=== PATIENT | female | born 1930 | race Caucasian/White ===

== ENCOUNTER 2018-02-25 14:52 | Inpatient (IN) | payer MEDICARE, MEDICAID, OTHER ==
[~2018-02-25] VITALS: Ht 157.5 cm; Wt 61.2 kg
[~2018-02-25 14:52] MED LIST: AMLO5TAB16 PO; ASPI-1265 PO; ATOR10TA PO; CARV25TA PO; FURO-149 PO; GLIP5TAB13 PO; LISI-642 PO; LORA10TA7 PO; POTA-82 PO; TRAZ-218 PO
[2018-02-25] MEDS ORDERED: furosemide 10 MG/1 ML 10ml inj IV ONE ×2 (15:40→20:00)
[2018-02-25 15:50] LABS: BASOPHILS % (AUTO) 0.8 % (0-1); EOSINOPHILS # (AUTO) 0.3 X10'3 (0-0.9); EOSINOPHILS % (AUTO) 5.6 % (0-6); HEMATOCRIT 40.6 % (35.0-45.0); HEMOGLOBIN 13.5 g/dl (12.0-16.0); LYMPHOCYTES # (AUTO) 1.3 X10'3 (1.1-4.8); LYMPHOCYTES % (AUTO) 21.8 % (21-51); MEAN CORPUSCULAR HEMOGLOBIN 28.9 PG (27.0-31.0); MEAN CORPUSCULAR HGB CONC 33.3 % (33.0-36.5); MEAN CORPUSCULAR VOLUME 86.9 FL (78-98); MEAN PLATELET VOLUME 9.5 FL (7.4-10.4); MONOCYTES # (AUTO) 0.5 X10'3 (0-0.9); MONOCYTES % (AUTO) 8.4 % (2-12); NEUTROPHILS # (AUTO) 3.7 X10'3 (1.8-7.7); NEUTROPHILS % (AUTO) 63.4 % (42-75); PLATELET COUNT 144 X10'3 (140-440); RED BLOOD COUNT 4.67 X10'6 (4.20-5.60); RED CELL DISTRIBUTION WIDTH 18.6 % (11.5-14.5); WHITE BLOOD COUNT 5.8 X10'3 (4.5-11.0)
[2018-02-25 16:02] LABS: ANISOCYTOSIS 2+; BURR CELLS FEW; PLATELET ESTIMATE NORMAL; SCHISTOCYTES FEW
[2018-02-25 16:05] LABS: GLUCOSE 330 MG/DL (70-104); SODIUM 138 MMOL/L (135-145)
[2018-02-25 16:06] LABS: ALANINE AMINOTRANSFERASE 11 U/L (12-78); ALBUMIN/GLOBULIN RATIO 0.8 (1.1-1.5); ALKALINE PHOSPHATASE 110 IU/L (46-116); ANION GAP 13 (8-16); ASPARTATE AMINO TRANSFERASE 14 U/L (10-37); BILIRUBIN,TOTAL 0.6 MG/DL (0.1-1.0); BLOOD UREA NITROGEN 46 MG/DL (7-18); BUN/CREATININE RATIO 18.8 (6.6-38.0); CALCIUM 9.1 MG/DL (8.5-10.1); CHLORIDE 107 MMOL/L (99-107); CREATININE 2.45 MG/DL (0.40-0.90); POTASSIUM 4.4 MMOL/L (3.5-5.1); TOTAL CARBON DIOXIDE 18.5 MMOL/L (24-32); TOTAL PROTEIN 6.6 G/DL (6.4-8.2); eGFR 19 ML/MIN
[2018-02-25 16:13] LABS: MAGNESIUM 2.1 MG/DL (1.5-2.4); TROPONIN I < 0.04 NG/ML (0.0-0.05)
[2018-02-25] MEDS ORDERED: ondansetron/PF 4mg/2ml inj IV PRN (17:10)
[2018-02-25] MEDS ORDERED: insulin Lispro (HumaLOG) vial - multi-dose SQ SCH (17:10)
[2018-02-25] MEDS ORDERED: magnesium 1gm/100ml D5W IVPB 100 ML IV PRN (17:10)
[2018-02-25] MEDS ORDERED: magnesium 4gm in 100ml NS 100 ML IV PRN (17:10)
[2018-02-25] MEDS ORDERED: potassium Cl 40MEQ/NS 500ml 500 ML IV PRN ×2 (17:10)
[2018-02-25] MEDS ORDERED: MESSAGE TO PHARMACY PO ONE (17:10)
[2018-02-25] MEDS ORDERED: glucagon, human recombinant 1mg kit SUBCUT PRN (17:10)
[2018-02-25] MEDS ORDERED: dextrose 50%-water 50ml dispensing syringe IV PRN ×2 (17:10)
[2018-02-25] MEDS ORDERED: potassium Cl 20 mEq SR tablet PO PRN ×2 (17:10)
[2018-02-25] MEDS ORDERED: dextrose ORAL solution 15 GM/59 ML bottle PO PRN ×2 (17:10)
[2018-02-25] MEDS ORDERED: magnesium Cl slow-release 64mg tablet PO PRN (17:10)
[2018-02-25 17:19] LABS: CLARITY,URINE CLOUDY (Clear); COLOR,URINE YELLOW (Yellow); GLUCOSE, URINE >=1000 mg/dl (Neg); KETONES,URINE NEGATIVE (Neg); LEUKOCYTE ESTERASE ,URINE NEGATIVE (Neg); NITRITES, URINE POSITIVE (Neg); OCCULT BLOOD,URINE MODERATE (Neg); PROTEIN,URINE >=300 mg/dl (Neg); UA COLLECTION TYPE STRAIGHT CATH; UROBILINOGEN,URINE 0.2 E.U/dL (0.2-1.0)
[2018-02-25 17:25] LABS: SQUAMOUS EPITHELIAL CELL,UR FEW /LPF (FEW)
[2018-02-25 17:26] LABS: BACTERIA,URINE 2+ /HPF (Neg); WBC,URINE 0-4 /HPF (0-4)
[2018-02-25 17:54] LABS: HEMOGLOBIN A1C 9.1 % (4.5-6.2)
[2018-02-25] MEDS ORDERED: enoxaparin 30mg/0.3ml syringe SQ SCH (20:00)
[2018-02-25] MEDS ORDERED: traZODone 50mg tablet PO PRN (20:25)
[2018-02-25] MEDS: insulin glargine (Lantus) pen - multi-dose SQ SCH (21:00)
[2018-02-25 21:25] VITALS: BP 182/97
[2018-02-25 22:00] VITALS: BP 157/96
[2018-02-26] VITALS: BP 157/85
[2018-02-26 07:21] VITALS: BP 188/98
[2018-02-26] MEDS: amLODIPine 5mg tablet PO SCH (07:55)
[2018-02-26] MEDS: lisinopril 5mg tablet PO SCH (07:55)
[2018-02-26] MEDS: carVEDilol 12.5mg tablet PO SCH ×2 (07:55→20:00)
[2018-02-26] MEDS: enoxaparin 30mg/0.3ml syringe SQ SCH (07:59)
[2018-02-26] MEDS: potassium chloride 10mEq ER tablet PO SCH (07:59)
[2018-02-26] MEDS: K and/or MAG REPLACEMENT MC SCH (07:59)
[2018-02-26] MEDS: atorvastatin 10mg tablet PO SCH (07:59)
[2018-02-26] MEDS: aspirin 81mg tab.chew PO SCH (07:59)
[2018-02-26] MEDS ORDERED: POTASSIUM CHLORIDE PO SCH (08:00)
[2018-02-26] MEDS ORDERED: diltiazem 5mg/ml 5ml inj. IV ONE ×2 (10:35)
[2018-02-26 11:30] VITALS: BP 109/64
[2018-02-26 13:15] LABS: BASOPHILS % (AUTO) 0.9 % (0-1); EOSINOPHILS # (AUTO) 0.3 X10'3 (0-0.9); EOSINOPHILS % (AUTO) 5.8 % (0-6); HEMATOCRIT 37.3 % (35.0-45.0); HEMOGLOBIN 12.6 g/dl (12.0-16.0); LYMPHOCYTES # (AUTO) 0.9 X10'3 (1.1-4.8); LYMPHOCYTES % (AUTO) 16.3 % (21-51); MEAN CORPUSCULAR HEMOGLOBIN 29.1 PG (27.0-31.0); MEAN CORPUSCULAR HGB CONC 33.9 % (33.0-36.5); MEAN PLATELET VOLUME 10.6 FL (7.4-10.4); MONOCYTES # (AUTO) 0.4 X10'3 (0-0.9); MONOCYTES % (AUTO) 6.8 % (2-12); NEUTROPHILS # (AUTO) 3.7 X10'3 (1.8-7.7); NEUTROPHILS % (AUTO) 70.2 % (42-75); PLATELET COUNT 132 X10'3 (140-440); RED BLOOD COUNT 4.34 X10'6 (4.20-5.60); RED CELL DISTRIBUTION WIDTH 18.2 % (11.5-14.5); WHITE BLOOD COUNT 5.3 X10'3 (4.5-11.0)
[2018-02-26 13:24] LABS: ALBUMIN 2.6 G/DL (3.4-5.0); ANION GAP 12 (8-16); BLOOD UREA NITROGEN 50 MG/DL (7-18); BUN/CREATININE RATIO 19.7 (6.6-38.0); CALCIUM 8.1 MG/DL (8.5-10.1); CHLORIDE 108 MMOL/L (99-107); CREATININE 2.54 MG/DL (0.40-0.90); GLUCOSE 236 MG/DL (70-104); MAGNESIUM 1.8 MG/DL (1.5-2.4); POTASSIUM 4.2 MMOL/L (3.5-5.1); SODIUM 139 MMOL/L (135-145); TOTAL CARBON DIOXIDE 19.2 MMOL/L (24-32); eGFR 18 ML/MIN
[2018-02-26 13:30] LABS: ANISOCYTOSIS 2+; PLATELET ESTIMATE DECREASED
[2018-02-26 13:31] LABS: BURR CELLS FEW; ELLIPTOCYTES 1+
[2018-02-26 19:00] VITALS: BP 167/69
[2018-02-26] MEDS: insulin glargine (Lantus) pen - multi-dose SQ SCH (21:00)
[2018-02-27] VITALS: BP 178/80
[2018-02-27 07:02] VITALS: BP 153/81
[2018-02-27] MEDS: K and/or MAG REPLACEMENT MC SCH (08:00)
[2018-02-27] MEDS: potassium chloride 10mEq ER tablet PO SCH (08:00)
[2018-02-27] MEDS: enoxaparin 30mg/0.3ml syringe SQ SCH (08:00)
[2018-02-27] MEDS: atorvastatin 10mg tablet PO SCH (08:00)
[2018-02-27] MEDS: carVEDilol 12.5mg tablet PO SCH ×2 (08:06→20:00)
[2018-02-27] MEDS: lisinopril 5mg tablet PO SCH (08:07)
[2018-02-27] MEDS: aspirin 81mg tab.chew PO SCH (08:07)
[2018-02-27] MEDS: amLODIPine 5mg tablet PO SCH (08:07)
[2018-02-27 11:00] VITALS: BP 143/66
[2018-02-27 11:47] LABS: BASOPHILS % (AUTO) 0.6 % (0-1); EOSINOPHILS # (AUTO) 0.2 X10'3 (0-0.9); EOSINOPHILS % (AUTO) 4.3 % (0-6); HEMATOCRIT 37.7 % (35.0-45.0); HEMOGLOBIN 12.5 g/dl (12.0-16.0); LYMPHOCYTES # (AUTO) 0.8 X10'3 (1.1-4.8); LYMPHOCYTES % (AUTO) 16.4 % (21-51); MEAN CORPUSCULAR HEMOGLOBIN 28.7 PG (27.0-31.0); MEAN CORPUSCULAR HGB CONC 33.2 % (33.0-36.5); MEAN CORPUSCULAR VOLUME 86.4 FL (78-98); MEAN PLATELET VOLUME 10.3 FL (7.4-10.4); MONOCYTES # (AUTO) 0.4 X10'3 (0-0.9); NEUTROPHILS # (AUTO) 3.6 X10'3 (1.8-7.7); NEUTROPHILS % (AUTO) 70.7 % (42-75); PLATELET COUNT 121 X10'3 (140-440); RED BLOOD COUNT 4.36 X10'6 (4.20-5.60); RED CELL DISTRIBUTION WIDTH 18.1 % (11.5-14.5); WHITE BLOOD COUNT 5.2 X10'3 (4.5-11.0)
[2018-02-27 11:57] LABS: ANION GAP 13 (8-16); BLOOD UREA NITROGEN 56 MG/DL (7-18); BUN/CREATININE RATIO 20.4 (6.6-38.0); CHLORIDE 106 MMOL/L (99-107); CREATININE 2.74 MG/DL (0.40-0.90); GLUCOSE 285 MG/DL (70-104); POTASSIUM 4.3 MMOL/L (3.5-5.1); SODIUM 138 MMOL/L (135-145); TOTAL CARBON DIOXIDE 19.4 MMOL/L (24-32)
[2018-02-27 11:58] LABS: ALBUMIN 2.5 G/DL (3.4-5.0); CALCIUM 8.2 MG/DL (8.5-10.1); MAGNESIUM 1.9 MG/DL (1.5-2.4); eGFR 16 ML/MIN
[2018-02-27] MEDS ORDERED: magnesium hydroxide 30ml (MOM) UD suspension PO PRN (15:50)
[2018-02-27] MEDS: azithromycin 250mg tablet PO SCH (17:00)
[2018-02-27 18:00] VITALS: BP 135/63
[2018-02-27] MEDS: insulin glargine (Lantus) pen - multi-dose SQ SCH (21:00)
[2018-02-28] VITALS: BP 167/70
[2018-02-28 07:00] VITALS: BP 176/75
[2018-02-28] MEDS: atorvastatin 10mg tablet PO SCH (08:00)
[2018-02-28] MEDS: potassium chloride 10mEq ER tablet PO SCH (08:00)
[2018-02-28] MEDS: K and/or MAG REPLACEMENT MC SCH (08:00)
[2018-02-28] MEDS: enoxaparin 30mg/0.3ml syringe SQ SCH (08:00)
[2018-02-28] MEDS: lisinopril 5mg tablet PO SCH (08:00)
[2018-02-28] MEDS: amLODIPine 5mg tablet PO SCH (08:00)
[2018-02-28] MEDS: aspirin 81mg tab.chew PO SCH (08:00)
[2018-02-28] MEDS: carVEDilol 12.5mg tablet PO SCH (08:00)
[2018-02-28] MEDS: azithromycin 250mg tablet PO SCH (08:26)
[2018-02-28] MEDS ORDERED: ALBU8HFA PO (10:27)
[2018-02-28] MEDS ORDERED: LEVO500T2 PO (10:27)
== END 2018-02-28 19:38 | disposition home health service (06) | DRG 291 ==
LOC: ER 14:53 → ED HOLD 17:06 → SUR 3N 21:15
PROVIDERS: ADMIT Internal Medicine; ATTEND Family Medicine
DX: I11.0 Hypertensive heart disease with heart failure (principal); J18.9 Pneumonia, unspecified organism; J96.90 Respiratory failure, unspecified, unspecified whether with hypoxia or hypercapnia; N17.9 Acute kidney failure, unspecified; I50.23 Acute on chronic systolic (congestive) heart failure; E03.9 Hypothyroidism, unspecified; E11.9 Type 2 diabetes mellitus without complications; E78.00 Pure hypercholesterolemia, unspecified; E78.5 Hyperlipidemia, unspecified; F03.90 Unspecified dementia, unspecified severity, without behavioral disturbance, psychotic disturbance, mood disturbance, and anxiety; K21.9 Gastro-esophageal reflux disease without esophagitis; Z53.20 Procedure and treatment not carried out because of patient's decision for unspecified reasons; Z51.5 Encounter for palliative care; Z90.710 Acquired absence of both cervix and uterus; Z88.0 Allergy status to penicillin; Z79.84 Long term (current) use of oral hypoglycemic drugs; Z79.899 Other long term (current) drug therapy; Z87.440 Personal history of urinary (tract) infections; Z86.73 Personal history of transient ischemic attack (TIA), and cerebral infarction without residual deficits; Z81.8 Family history of other mental and behavioral disorders
CPT/HCPCS: 36415; 70450; 71045; 80048; 80053; 81001; 82948; 83036; 83735; 83880; 84484; 85025; 87070; 87077; 87088; 93005; 93306; 94760; 99285; A4315; J1650; J1815; J1940; J3490

== ENCOUNTER 2018-04-14 21:45 | Inpatient (IN) | payer MEDICARE, MEDICAID, OTHER ==
[~2018-04-14] VITALS: Ht 154.9 cm; Wt 50.0 kg
[2018-04-14 23:17] LABS: BASOPHILS % (AUTO) 0.7 % (0-1); EOSINOPHILS # (AUTO) 0.2 X10'3 (0-0.9); EOSINOPHILS % (AUTO) 3.5 % (0-6); HEMATOCRIT 40.6 % (35.0-45.0); HEMOGLOBIN 13.3 g/dl (12.0-16.0); LYMPHOCYTES # (AUTO) 1.2 X10'3 (1.1-4.8); LYMPHOCYTES % (AUTO) 21.2 % (21-51); MEAN CORPUSCULAR HEMOGLOBIN 28.2 PG (27.0-31.0); MEAN CORPUSCULAR HGB CONC 32.7 % (33.0-36.5); MEAN CORPUSCULAR VOLUME 86.2 FL (78-98); MEAN PLATELET VOLUME 9.3 FL (7.4-10.4); MONOCYTES # (AUTO) 0.5 X10'3 (0-0.9); MONOCYTES % (AUTO) 8.6 % (2-12); NEUTROPHILS # (AUTO) 3.7 X10'3 (1.8-7.7); PLATELET COUNT 143 X10'3 (140-440); RED BLOOD COUNT 4.71 X10'6 (4.20-5.60); RED CELL DISTRIBUTION WIDTH 17.6 % (11.5-14.5); WHITE BLOOD COUNT 5.7 X10'3 (4.5-11.0)
[2018-04-14 23:35] LABS: ALANINE AMINOTRANSFERASE 13 U/L (12-78); ALBUMIN 2.9 G/DL (3.4-5.0); ALBUMIN/GLOBULIN RATIO 0.8 (1.1-1.5); ALKALINE PHOSPHATASE 105 IU/L (46-116); ANION GAP 11 (8-16); ASPARTATE AMINO TRANSFERASE 12 U/L (10-37); BILIRUBIN,TOTAL 0.5 MG/DL (0.1-1.0); BLOOD UREA NITROGEN 44 MG/DL (7-18); BUN/CREATININE RATIO 17.6 (6.6-38.0); CALCIUM 8.7 MG/DL (8.5-10.1); CHLORIDE 109 MMOL/L (99-107); GLUCOSE 227 MG/DL (70-104); POTASSIUM 4.4 MMOL/L (3.5-5.1); SODIUM 139 MMOL/L (135-145); TOTAL CARBON DIOXIDE 19.1 MMOL/L (24-32); TOTAL PROTEIN 6.4 G/DL (6.4-8.2); eGFR 18 ML/MIN
[2018-04-14 23:38] LABS: INR 1.1 INR; PARTIAL THROMBOPLASTIN TIME 26 SECONDS (22-32); PROTHROMBIN TIME 11.2 SECONDS (9.0-12.0)
[2018-04-15] VITALS (9 sets, daily range): BP systolic 119–188; BP diastolic 53–94
[2018-04-15] MEDS ORDERED: nitroGLYCERIN 0.4mg/hour patch TD ONE ×2 (00:10→01:00)
[2018-04-15] MEDS ORDERED: diphenhydrAMINE 50 mg/ml inj IV ONE (00:10)
[2018-04-15] MEDS ORDERED: furosemide 10 MG/1 ML 10ml inj IV ONE (00:40)
[2018-04-15] MEDS ORDERED: LISI-600 PO (00:42)
[2018-04-15] MEDS ORDERED: THYR32.510 PO (00:42)
[2018-04-15] MEDS ORDERED: mag hydrox/Alum hydrox/simeth 30ml oral suspension PO PRN (00:55)
[2018-04-15] MEDS ORDERED: HYDROcodone/acetaminophen 5mg/325mg tablet PO PRN (00:55)
[2018-04-15] MEDS ORDERED: acetaminophen 650mg rectal suppository RC PRN (00:55)
[2018-04-15] MEDS ORDERED: diphenhydrAMINE 25mg capsule PO PRN (00:55)
[2018-04-15] MEDS ORDERED: magnesium hydroxide 30ml (MOM) UD suspension PO PRN (00:55)
[2018-04-15] MEDS ORDERED: metoclopramide 5 mg/ml inj IV PRN (00:55)
[2018-04-15] MEDS ORDERED: traZODone 50mg tablet PO PRN (00:55)
[2018-04-15] MEDS ORDERED: acetaminophen 325mg tablet PO PRN (00:55)
[2018-04-15] MEDS ORDERED: morphine 2 MG/ML inj. syringe IV PRN ×2 (00:55)
[2018-04-15] MEDS ORDERED: diphenhydrAMINE 50 mg/ml inj IV PRN (00:55)
[2018-04-15] MEDS ORDERED: HYDROmorphone 1 mg/ml syringe IV PRN ×2 (00:55)
[2018-04-15] MEDS ORDERED: ondansetron/PF 4mg/2ml inj IV PRN (00:55)
[2018-04-15] MEDS ORDERED: bisacodyl 10mg suppository rectal RC PRN (00:55)
[2018-04-15] MEDS ORDERED: HYDROcodone/acetaminophen 10/325mg tab PO PRN (00:55)
[2018-04-15] MEDS ORDERED: glucagon, human recombinant 1mg kit SUBCUT PRN (01:00)
[2018-04-15] MEDS ORDERED: MESSAGE TO PHARMACY PO ONE (01:00)
[2018-04-15] MEDS ORDERED: dextrose ORAL solution 15 GM/59 ML bottle PO PRN ×2 (01:00)
[2018-04-15] MEDS ORDERED: dextrose 50%-water 50ml dispensing syringe IV PRN ×2 (01:00)
[2018-04-15 01:17] LABS: PHOSPHORUS 3.4 MG/DL (2.3-4.5)
[2018-04-15 01:30] LABS: D-DIMER 1.82 MG/L FEU (0-0.50)
[2018-04-15] MEDS: hydrALAZINE 20mg/ml inj. IV SCH ×4 (03:35→19:37)
[2018-04-15] MEDS: carVEDilol 12.5mg tablet PO SCH ×2 (08:00→19:37)
[2018-04-15] MEDS: furosemide 10 MG/1 ML 10ml inj IV SCH (08:00)
[2018-04-15] MEDS: docusate sod 100mg capsule PO SCH ×2 (08:00→19:37)
[2018-04-15] MEDS: lisinopril 20mg tablet PO SCH (08:00)
[2018-04-15] MEDS: THYROID PORK 32.5 MG PO SCH (08:00)
[2018-04-15] MEDS: heparin, porcine 5000 units/ml vial SQ SCH ×2 (08:00→19:37)
[2018-04-15] MEDS: famotidine 20mg tablet PO SCH (21:00)
[2018-04-15] MEDS ORDERED: temazepam 15mg capsule PO PRN (21:00)
[2018-04-16] VITALS: BP 119/44
[2018-04-16] MEDS: hydrALAZINE 20mg/ml inj. IV SCH ×4 (02:39→22:16)
[2018-04-16 02:43] VITALS: BP 136/64
[2018-04-16 05:40] LABS: BASOPHILS % (AUTO) 0.5 % (0-1); EOSINOPHILS # (AUTO) 0.2 X10'3 (0-0.9); EOSINOPHILS % (AUTO) 3.6 % (0-6); HEMATOCRIT 36.5 % (35.0-45.0); LYMPHOCYTES # (AUTO) 0.8 X10'3 (1.1-4.8); LYMPHOCYTES % (AUTO) 16.2 % (21-51); MEAN CORPUSCULAR HEMOGLOBIN 28.4 PG (27.0-31.0); MEAN CORPUSCULAR HGB CONC 32.8 % (33.0-36.5); MEAN CORPUSCULAR VOLUME 86.4 FL (78-98); MEAN PLATELET VOLUME 9.6 FL (7.4-10.4); MONOCYTES # (AUTO) 0.4 X10'3 (0-0.9); MONOCYTES % (AUTO) 7.6 % (2-12); NEUTROPHILS # (AUTO) 3.7 X10'3 (1.8-7.7); NEUTROPHILS % (AUTO) 72.1 % (42-75); PLATELET COUNT 112 X10'3 (140-440); RED BLOOD COUNT 4.23 X10'6 (4.20-5.60); WHITE BLOOD COUNT 5.2 X10'3 (4.5-11.0)
[2018-04-16 05:55] LABS: ALANINE AMINOTRANSFERASE 12 U/L (12-78); ALBUMIN 2.5 G/DL (3.4-5.0); ALBUMIN/GLOBULIN RATIO 0.8 (1.1-1.5); ALKALINE PHOSPHATASE 95 IU/L (46-116); ANION GAP 14 (8-16); ASPARTATE AMINO TRANSFERASE 12 U/L (10-37); BILIRUBIN,TOTAL 0.6 MG/DL (0.1-1.0); BLOOD UREA NITROGEN 49 MG/DL (7-18); BUN/CREATININE RATIO 18.5 (6.6-38.0); CALCIUM 7.9 MG/DL (8.5-10.1); CHLORIDE 108 MMOL/L (99-107); CREATININE 2.65 MG/DL (0.40-0.90); GLUCOSE 196 MG/DL (70-104); SODIUM 141 MMOL/L (135-145); TOTAL CARBON DIOXIDE 19.1 MMOL/L (24-32); TOTAL PROTEIN 5.7 G/DL (6.4-8.2); eGFR 17 ML/MIN
[2018-04-16] MEDS: THYROID PORK 32.5 MG PO SCH (08:00)
[2018-04-16] MEDS: furosemide 10 MG/1 ML 10ml inj IV SCH (08:50)
[2018-04-16] MEDS: carVEDilol 12.5mg tablet PO SCH ×2 (08:52→22:19)
[2018-04-16] MEDS: docusate sod 100mg capsule PO SCH ×2 (08:52→20:00)
[2018-04-16] MEDS: lisinopril 20mg tablet PO SCH (08:53)
[2018-04-16] MEDS: heparin, porcine 5000 units/ml vial SQ SCH ×2 (08:54→22:19)
[2018-04-16] MEDS: insulin Lispro (HumaLOG) vial - multi-dose SQ SCH ×2 (10:05→12:50)
[2018-04-16 12:00] VITALS: BP 128/59
[2018-04-16] MEDS ORDERED: salt irrigation nasal spray 45 ML SPRAY NS PRN (13:20)
[2018-04-16 18:00] VITALS: BP 159/74
[2018-04-16] MEDS: famotidine 20mg tablet PO SCH (21:00)
[2018-04-17] VITALS: BP 119/58
[2018-04-17] MEDS: hydrALAZINE 20mg/ml inj. IV SCH ×4 (01:50→20:00)
[2018-04-17 06:02] LABS: BASOPHILS % (AUTO) 0.4 % (0-1); EOSINOPHILS # (AUTO) 0.2 X10'3 (0-0.9); EOSINOPHILS % (AUTO) 4.8 % (0-6); HEMATOCRIT 36.3 % (35.0-45.0); HEMOGLOBIN 12.1 g/dl (12.0-16.0); LYMPHOCYTES # (AUTO) 0.8 X10'3 (1.1-4.8); LYMPHOCYTES % (AUTO) 18.1 % (21-51); MEAN CORPUSCULAR HEMOGLOBIN 28.6 PG (27.0-31.0); MEAN CORPUSCULAR HGB CONC 33.3 % (33.0-36.5); MEAN CORPUSCULAR VOLUME 85.7 FL (78-98); MEAN PLATELET VOLUME 9.8 FL (7.4-10.4); MONOCYTES # (AUTO) 0.4 X10'3 (0-0.9); NEUTROPHILS % (AUTO) 67.7 % (42-75); PLATELET COUNT 113 X10'3 (140-440); RED BLOOD COUNT 4.24 X10'6 (4.20-5.60); RED CELL DISTRIBUTION WIDTH 17.2 % (11.5-14.5); WHITE BLOOD COUNT 4.5 X10'3 (4.5-11.0)
[2018-04-17 06:17] LABS: ALANINE AMINOTRANSFERASE 11 U/L (12-78); ALBUMIN 2.5 G/DL (3.4-5.0); ALBUMIN/GLOBULIN RATIO 0.8 (1.1-1.5); ALKALINE PHOSPHATASE 93 IU/L (46-116); ANION GAP 15 (8-16); ASPARTATE AMINO TRANSFERASE 9 U/L (10-37); BILIRUBIN,TOTAL 0.4 MG/DL (0.1-1.0); BLOOD UREA NITROGEN 51 MG/DL (7-18); CALCIUM 7.7 MG/DL (8.5-10.1); CHLORIDE 106 MMOL/L (99-107); CREATININE 2.83 MG/DL (0.40-0.90); GLUCOSE 187 MG/DL (70-104); POTASSIUM 3.7 MMOL/L (3.5-5.1); SODIUM 141 MMOL/L (135-145); TOTAL CARBON DIOXIDE 19.9 MMOL/L (24-32); TOTAL PROTEIN 5.7 G/DL (6.4-8.2); eGFR 16 ML/MIN
[2018-04-17 07:00] VITALS: BP 138/71
[2018-04-17] MEDS: heparin, porcine 5000 units/ml vial SQ SCH ×4 (08:00→22:36)
[2018-04-17] MEDS: docusate sod 100mg capsule PO SCH ×2 (08:00→20:00)
[2018-04-17] MEDS: lisinopril 20mg tablet PO SCH (08:00)
[2018-04-17] MEDS: furosemide 10 MG/1 ML 10ml inj IV SCH ×2 (08:00→12:07)
[2018-04-17] MEDS: THYROID PORK 32.5 MG PO SCH (08:00)
[2018-04-17] MEDS: carVEDilol 12.5mg tablet PO SCH ×2 (08:00→22:34)
[2018-04-17 11:00] VITALS: BP 146/50
[2018-04-17 18:00] VITALS: BP 138/81
[2018-04-17] MEDS: famotidine 20mg tablet PO SCH (21:00)
[2018-04-18] VITALS: BP 112/76
[2018-04-18] MEDS: hydrALAZINE 20mg/ml inj. IV SCH ×2 (02:00→08:00)
[2018-04-18 06:27] LABS: BASOPHILS % (AUTO) 0.6 % (0-1); EOSINOPHILS # (AUTO) 0.2 X10'3 (0-0.9); EOSINOPHILS % (AUTO) 3.8 % (0-6); HEMATOCRIT 36.5 % (35.0-45.0); HEMOGLOBIN 11.8 g/dl (12.0-16.0); LYMPHOCYTES # (AUTO) 0.7 X10'3 (1.1-4.8); LYMPHOCYTES % (AUTO) 12.4 % (21-51); MEAN CORPUSCULAR HEMOGLOBIN 28.1 PG (27.0-31.0); MEAN CORPUSCULAR HGB CONC 32.4 % (33.0-36.5); MEAN CORPUSCULAR VOLUME 86.7 FL (78-98); MONOCYTES # (AUTO) 0.4 X10'3 (0-0.9); MONOCYTES % (AUTO) 7.8 % (2-12); NEUTROPHILS # (AUTO) 4.1 X10'3 (1.8-7.7); NEUTROPHILS % (AUTO) 75.4 % (42-75); PLATELET COUNT 106 X10'3 (140-440); RED BLOOD COUNT 4.21 X10'6 (4.20-5.60); RED CELL DISTRIBUTION WIDTH 17.3 % (11.5-14.5); WHITE BLOOD COUNT 5.4 X10'3 (4.5-11.0)
[2018-04-18 06:57] LABS: ALANINE AMINOTRANSFERASE 12 U/L (12-78); ALBUMIN 2.5 G/DL (3.4-5.0); ALBUMIN/GLOBULIN RATIO 0.8 (1.1-1.5); ALKALINE PHOSPHATASE 95 IU/L (46-116); ANION GAP 13 (8-16); ASPARTATE AMINO TRANSFERASE 10 U/L (10-37); BILIRUBIN,TOTAL 0.4 MG/DL (0.1-1.0); BLOOD UREA NITROGEN 52 MG/DL (7-18); BUN/CREATININE RATIO 18.6 (6.6-38.0); CALCIUM 7.7 MG/DL (8.5-10.1); CHLORIDE 106 MMOL/L (99-107); GLUCOSE 225 MG/DL (70-104); POTASSIUM 3.9 MMOL/L (3.5-5.1); SODIUM 140 MMOL/L (135-145); TOTAL CARBON DIOXIDE 20.7 MMOL/L (24-32); TOTAL PROTEIN 5.8 G/DL (6.4-8.2); eGFR 16 ML/MIN
[2018-04-18 07:00] VITALS: BP 140/66
[2018-04-18] MEDS: docusate sod 100mg capsule PO SCH (08:00)
[2018-04-18] MEDS: furosemide 10 MG/1 ML 10ml inj IV SCH (08:00)
[2018-04-18] MEDS: heparin, porcine 5000 units/ml vial SQ SCH (08:00)
[2018-04-18] MEDS: carVEDilol 12.5mg tablet PO SCH (08:00)
[2018-04-18] MEDS: THYROID PORK 32.5 MG PO SCH (08:00)
[2018-04-18] MEDS: lisinopril 20mg tablet PO SCH (08:00)
[2018-04-18 12:02] VITALS: BP 114/55
== END 2018-04-18 14:34 | disposition home health service (06) | DRG 291 ==
LOC: ER 21:46 → ED HOLD 04-15 00:55 → PCU 3S 04-15 01:45 → SUR 3N 04-15 20:21
PROVIDERS: ADMIT Family Medicine; ATTEND Internal Medicine
DX: I13.0 Hypertensive heart and chronic kidney disease with heart failure and stage 1 through stage 4 chronic kidney disease, or unspecified chronic kidney disease (principal); I50.23 Acute on chronic systolic (congestive) heart failure; N17.9 Acute kidney failure, unspecified; I16.1 Hypertensive emergency; F03.90 Unspecified dementia, unspecified severity, without behavioral disturbance, psychotic disturbance, mood disturbance, and anxiety; E03.9 Hypothyroidism, unspecified; E11.22 Type 2 diabetes mellitus with diabetic chronic kidney disease; E78.00 Pure hypercholesterolemia, unspecified; K21.9 Gastro-esophageal reflux disease without esophagitis; N18.3 Chronic kidney disease, stage 3 (moderate); Z90.710 Acquired absence of both cervix and uterus; Z79.899 Other long term (current) drug therapy; Z79.84 Long term (current) use of oral hypoglycemic drugs; Z88.0 Allergy status to penicillin; Z87.440 Personal history of urinary (tract) infections; Z86.73 Personal history of transient ischemic attack (TIA), and cerebral infarction without residual deficits; Z87.891 Personal history of nicotine dependence; Z81.8 Family history of other mental and behavioral disorders
CPT/HCPCS: 36415; 70450; 71045; 80053; 82948; 83735; 83880; 84100; 84484; 85025; 85379; 85610; 85730; 87070; 93005; 96374; 99285; J0360; J1170; J1200; J1644; J1940

== ENCOUNTER → 2018-07-01 | Emergency (ER) | payer MEDICARE, MEDICAID, OTHER ==
[~2018-07-01] VITALS: Ht 152.4 cm; Wt 70.0 kg
[~2018-07-01] MED LIST changes: -AMLO5TAB16 PO; -ASPI-1265 PO; -ATOR10TA PO; +DOXY100C43 PO; +DOXYCYCLINE 100MG CAPSULE PO STA; +LISI-600 PO; -LISI-642 PO; -LORA10TA7 PO; -POTA-82 PO; +THYR32.510 PO
[2018-07-01 17:55] VITALS: BP 153/75
[2018-07-01 20:19] LABS: INR 1.1 INR; PROTHROMBIN TIME 11.3 SECONDS (9.0-12.0)
[2018-07-01 20:20] LABS: BASOPHILS % (AUTO) 0.8 % (0-1); EOSINOPHILS # (AUTO) 0.3 X10'3 (0-0.9); EOSINOPHILS % (AUTO) 6.6 % (0-6); HEMATOCRIT 38.1 % (35.0-45.0); HEMOGLOBIN 12.6 g/dl (12.0-16.0); LYMPHOCYTES # (AUTO) 0.8 X10'3 (1.1-4.8); LYMPHOCYTES % (AUTO) 17.3 % (21-51); MEAN CORPUSCULAR HEMOGLOBIN 29.1 PG (27.0-31.0); MEAN CORPUSCULAR HGB CONC 33.1 % (33.0-36.5); MEAN CORPUSCULAR VOLUME 87.9 FL (78-98); MEAN PLATELET VOLUME 9.2 FL (7.4-10.4); MONOCYTES # (AUTO) 0.4 X10'3 (0-0.9); MONOCYTES % (AUTO) 8.4 % (2-12); NEUTROPHILS # (AUTO) 3.4 X10'3 (1.8-7.7); NEUTROPHILS % (AUTO) 66.9 % (42-75); PLATELET COUNT 135 X10'3 (140-440); RED BLOOD COUNT 4.34 X10'6 (4.20-5.60); RED CELL DISTRIBUTION WIDTH 16.6 % (11.5-14.5); WHITE BLOOD COUNT 4.9 X10'3 (4.5-11.0)
[2018-07-01 20:23] LABS: ALANINE AMINOTRANSFERASE 15 U/L (12-78); ALBUMIN 2.9 G/DL (3.4-5.0); ALBUMIN/GLOBULIN RATIO 0.8 (1.1-1.5); ALKALINE PHOSPHATASE 118 IU/L (46-116); ANION GAP 16 (8-16); ASPARTATE AMINO TRANSFERASE 11 U/L (10-37); BILIRUBIN,TOTAL 0.5 MG/DL (0.1-1.0); BLOOD UREA NITROGEN 62 MG/DL (7-18); BUN/CREATININE RATIO 22.2 (6.6-38.0); CALCIUM 8.1 MG/DL (8.5-10.1); CHLORIDE 106 MMOL/L (99-107); CREATININE 2.79 MG/DL (0.40-0.90); GLUCOSE 231 MG/DL (70-104); POTASSIUM 5.3 MMOL/L (3.5-5.1); SODIUM 135 MMOL/L (135-145); TOTAL PROTEIN 6.6 G/DL (6.4-8.2); eGFR 16 ML/MIN
[2018-07-01 20:29] LABS: TOTAL CARBON DIOXIDE 13.4 MMOL/L (24-32)
== END | disposition home or self-care (01) ==
LOC: ER 17:29
DX: L03.114 Cellulitis of left upper limb (principal); S40.022A Contusion of left upper arm, initial encounter; I50.9 Heart failure, unspecified; E78.00 Pure hypercholesterolemia, unspecified; I11.0 Hypertensive heart disease with heart failure; K21.9 Gastro-esophageal reflux disease without esophagitis; E11.9 Type 2 diabetes mellitus without complications; E03.9 Hypothyroidism, unspecified; Z86.73 Personal history of transient ischemic attack (TIA), and cerebral infarction without residual deficits; Z90.710 Acquired absence of both cervix and uterus; Z88.0 Allergy status to penicillin; Z79.899 Other long term (current) drug therapy; X58.XXXA Exposure to other specified factors, initial encounter; Y93.89 Activity, other specified; Y92.89 Other specified places as the place of occurrence of the external cause; Y99.8 Other external cause status
CPT/HCPCS: 36415; 80053; 85025; 85610; 93971; 99284

== ENCOUNTER 2018-10-09 12:57 | Inpatient (IN) | payer MEDICARE, MEDICAID, OTHER ==
[~2018-10-09] VITALS: Ht 162.6 cm; Wt 50.1 kg
[~2018-10-09 12:57] MED LIST changes: -DOXY100C43 PO; -DOXYCYCLINE 100MG CAPSULE PO STA
[2018-10-09 14:00] LABS: BASOPHILS # (AUTO) 0.1 X10'3 (0-0.2); EOSINOPHILS # (AUTO) 0.2 X10'3 (0-0.9); EOSINOPHILS % (AUTO) 3.3 % (0-6); HEMATOCRIT 37.8 % (35.0-45.0); HEMOGLOBIN 12.6 g/dl (12.0-16.0); LYMPHOCYTES % (AUTO) 19.8 % (21-51); MEAN CORPUSCULAR HEMOGLOBIN 28.8 PG (27.0-31.0); MEAN CORPUSCULAR HGB CONC 33.3 g/dL (33.0-36.5); MEAN CORPUSCULAR VOLUME 86.6 FL (78-98); MEAN PLATELET VOLUME 10.7 FL (7.4-10.4); MONOCYTES # (AUTO) 0.4 X10'3 (0-0.9); MONOCYTES % (AUTO) 7.9 % (2-12); NEUTROPHILS # (AUTO) 3.4 X10'3 (1.8-7.7); PLATELET COUNT 86 X10'3 (140-440); RED BLOOD COUNT 4.37 X10'6 (4.20-5.60); RED CELL DISTRIBUTION WIDTH 18.1 % (11.5-14.5); WHITE BLOOD COUNT 5.1 X10'3 (4.5-11.0)
[2018-10-09 14:12] LABS: INR 1.2 INR; PARTIAL THROMBOPLASTIN TIME 27 SECONDS (22-32)
[2018-10-09 14:13] LABS: ALANINE AMINOTRANSFERASE 12 U/L (12-78); ALBUMIN 2.9 G/DL (3.4-5.0); ALBUMIN/GLOBULIN RATIO 0.9 (1.1-1.5); ALKALINE PHOSPHATASE 79 IU/L (46-116); ANION GAP 13 (8-16); ASPARTATE AMINO TRANSFERASE 11 U/L (10-37); BILIRUBIN,TOTAL 0.7 MG/DL (0.1-1.0); BLOOD UREA NITROGEN 57 MG/DL (7-18); BUN/CREATININE RATIO 20.1 (6.6-38.0); CALCIUM 8.7 MG/DL (8.5-10.1); CHLORIDE 112 MMOL/L (99-107); CREATININE 2.84 MG/DL (0.40-0.90); GLUCOSE 178 MG/DL (70-104); POTASSIUM 4.8 MMOL/L (3.5-5.1); SODIUM 141 MMOL/L (135-145); TOTAL CARBON DIOXIDE 15.6 MMOL/L (24-32); TOTAL PROTEIN 6.2 G/DL (6.4-8.2); eGFR 16 ML/MIN
[2018-10-09 14:22] LABS: TROPONIN I 0.04 NG/ML (0.0-0.05)
[2018-10-09 14:32] LABS: CLARITY,URINE SLIGHTLY CLOUDY (Clear); COLOR,URINE STRAW (Yellow); GLUCOSE, URINE 100 mg/dl (Neg); KETONES,URINE NEGATIVE (Neg); LEUKOCYTE ESTERASE ,URINE NEGATIVE (Neg); NITRITES, URINE NEGATIVE (Neg); OCCULT BLOOD,URINE SMALL (Neg); PH,URINE 5.5 (4.8-8.0); PROTEIN,URINE 100 mg/dl (Neg); UROBILINOGEN,URINE 0.2 E.U/dL (0.2-1.0)
[2018-10-09 14:34] LABS: UA COLLECTION TYPE STRAIGHT CATH
[2018-10-09 14:37] LABS: AMORPHOUS URATES 2+; BACTERIA,URINE FEW /HPF (Neg); MUCUS STRANDS NONE SEEN /LPF (Neg); SQUAMOUS EPITHELIAL CELL,UR FEW /LPF (FEW); WBC,URINE 0-4 /HPF (0-4)
[2018-10-09] MEDS ORDERED: furosemide 10 MG/1 ML 10ml inj IV ONE (14:50)
[2018-10-09 14:54] LABS: ANISOCYTOSIS 2+; LARGE PLATELETS FEW; PLATELET ESTIMATE DECREASED
[2018-10-09 14:55] LABS: BURR CELLS 1+; ELLIPTOCYTES 1+; SCHISTOCYTES FEW
[2018-10-09] MEDS ORDERED: CARV-50 PO (15:17)
[2018-10-09] MEDS ORDERED: ondansetron/PF 4mg/2ml inj IV PRN (15:40)
[2018-10-09] MEDS ORDERED: magnesium 4gm in 100ml NS 100 ML IV PRN (15:40)
[2018-10-09] MEDS ORDERED: acetaminophen 325mg tablet PO PRN (15:40)
[2018-10-09] MEDS ORDERED: magnesium Cl slow-release 64mg tablet PO PRN (15:40)
[2018-10-09] MEDS ORDERED: potassium Cl 40MEQ/NS 500ml 500 ML IV PRN ×2 (15:40)
[2018-10-09] MEDS ORDERED: potassium Cl 20 mEq SR tablet PO PRN ×2 (15:40)
[2018-10-09] MEDS ORDERED: magnesium 2GM in 50ml NS 50 ML IV PRN (15:40)
[2018-10-09] MEDS ORDERED: traZODone 50mg tablet PO PRN (16:05)
[2018-10-09 18:00] VITALS: BP 146/49
[2018-10-09 19:25] LABS: ABG BASE EXCESS -9.4 mmol/L (-2.0-3.0); ABG HCO3 13.7 mmol/L (22.0-26.0); ABG OXYGEN SATURATION 97.6 % (95-98); ABG PCO2 (T) 22.5 mmHg (32.0-45.0); ABG PH (T) 7.399 (7.350-7.450); ABG PO2 (T) 98.5 mmHg (83-108); ALLEN'S TEST Positive; FCOHb 0.5 % (0.5-1.5); FMetHb 0.1 % (0.3-1.12); TOTAL HEMOGLOBIN 13.1 G/dl (12.0-16.0)
--- NOTE | 2018-10-09 19:45 | NUR ---
PATIENT ARRIVED AT THE UNIT AT 1930 IN NO DISTRESS Addendum: 10/09/18 at 2340 by Magali Block RN DTR AT BEDSIDE
[2018-10-09] MEDS: nystatin 15 GM ointment TP SCH (21:00)
[2018-10-09] MEDS: carVEDilol 12.5mg tablet PO SCH (22:29)
[2018-10-09] MEDS: docusate sod 100mg capsule PO SCH (22:29)
--- NOTE | 2018-10-09 23:40 | NUR ---
dtr requested if nursing can continue treatments on patients redness to breast and groin using betadine, spoke with Dr. King and did not want to use betadine and just ask day shift hospitalist
[2018-10-10] VITALS: BP 160/72
[2018-10-10 06:39] LABS: BASOPHILS % (AUTO) 0.7 % (0-1); EOSINOPHILS # (AUTO) 0.2 X10'3 (0-0.9); HEMATOCRIT 37.1 % (35.0-45.0); HEMOGLOBIN 11.9 g/dl (12.0-16.0); LYMPHOCYTES # (AUTO) 0.9 X10'3 (1.1-4.8); LYMPHOCYTES % (AUTO) 24.8 % (21-51); MEAN CORPUSCULAR HEMOGLOBIN 28.2 PG (27.0-31.0); MEAN CORPUSCULAR HGB CONC 32.1 g/dL (33.0-36.5); MEAN CORPUSCULAR VOLUME 87.9 FL (78-98); MEAN PLATELET VOLUME 10.4 FL (7.4-10.4); MONOCYTES # (AUTO) 0.4 X10'3 (0-0.9); MONOCYTES % (AUTO) 10.6 % (2-12); NEUTROPHILS # (AUTO) 2.2 X10'3 (1.8-7.7); NEUTROPHILS % (AUTO) 58.9 % (42-75); PLATELET COUNT 75 X10'3 (140-440); RED BLOOD COUNT 4.22 X10'6 (4.20-5.60); RED CELL DISTRIBUTION WIDTH 18.3 % (11.5-14.5); WHITE BLOOD COUNT 3.8 X10'3 (4.5-11.0)
--- NOTE | 2018-10-10 06:39 | NUR ---
Patient in room [facility]. I have received report from viji reyes rn and had the opportunity to ask questions and assume patient care.
[2018-10-10 07:01] LABS: ANION GAP 14 (8-16); BLOOD UREA NITROGEN 55 MG/DL (7-18); BUN/CREATININE RATIO 18.8 (6.6-38.0); CALCIUM 8.6 MG/DL (8.5-10.1); CHLORIDE 111 MMOL/L (99-107); CREATININE 2.93 MG/DL (0.40-0.90); GLUCOSE 198 MG/DL (70-104); POTASSIUM 4.5 MMOL/L (3.5-5.1); SODIUM 141 MMOL/L (135-145); TOTAL CARBON DIOXIDE 15.7 MMOL/L (24-32); eGFR 15 ML/MIN
[2018-10-10 07:02] LABS: ALBUMIN 2.8 G/DL (3.4-5.0)
--- NOTE | 2018-10-10 07:07 | NUR ---
Problems reprioritized. Patient report given, questions answered & plan of care reviewed with NERISSA Gruber..
[2018-10-10] MEDS: K and/or MAG REPLACEMENT MC SCH (07:57)
[2018-10-10 08:00] VITALS: BP 165/60
[2018-10-10] MEDS: nystatin 15 GM ointment TP SCH ×3 (08:00→22:18)
[2018-10-10] MEDS ORDERED: thyroid, pork 30mg tablet PO SCH (08:00)
[2018-10-10] MEDS: carVEDilol 12.5mg tablet PO SCH ×2 (08:02→19:51)
[2018-10-10] MEDS: NATURE THROID 97.5 MG PO SCH (08:02)
[2018-10-10] MEDS: docusate sod 100mg capsule PO SCH ×2 (08:02→19:51)
[2018-10-10 11:51] LABS: CLARITY,URINE SLIGHTLY CLOUDY (Clear); COLOR,URINE STRAW (Yellow); GLUCOSE, URINE 100 mg/dl (Neg); KETONES,URINE NEGATIVE (Neg); LEUKOCYTE ESTERASE ,URINE NEGATIVE (Neg); NITRITES, URINE NEGATIVE (Neg); OCCULT BLOOD,URINE SMALL (Neg); PH,URINE 5.5 (4.8-8.0); PROTEIN,URINE 30 mg/dl (Neg); UROBILINOGEN,URINE 0.2 E.U/dL (0.2-1.0)
[2018-10-10 11:55] LABS: UA COLLECTION TYPE STRAIGHT CATH
[2018-10-10 11:57] VITALS: BP 143/56
[2018-10-10 11:59] LABS: AMORPHOUS URATES 2+; BACTERIA,URINE NONE SEEN /HPF (Neg); MUCUS STRANDS NONE SEEN /LPF (Neg); RBC,URINE 0-2 /HPF (0-2); SQUAMOUS EPITHELIAL CELL,UR NONE SEEN /LPF (FEW); WBC,URINE 0-4 /HPF (0-4)
[2018-10-10 12:02] LABS: TOTAL PROTEIN,URINE RANDOM 87.7 MG/DL
[2018-10-10 12:49] LABS: UA EOSINOPHILS NO EOS /HPF
--- NOTE | 2018-10-10 18:10 | NUR ---
Problems reprioritized. Patient report given, questions answered & plan of care reviewed with viji baxter.
--- NOTE | 2018-10-10 18:14 | NUR ---
PER DR MORALES, SHE DOES NOT WANT TO START THE PT ON HYPERGLYCEMIC PROTOCOL
--- NOTE | 2018-10-10 18:23 | NUR ---
Patient in room [facility]. I have received report from NERISSA Gruber and had the opportunity to ask questions and assume patient care. Addendum: 10/10/18 at 1824 by Magali Block RN Amended: Links added.
--- NOTE | 2018-10-10 19:17 | NUR ---
DM Consult: A1C 7.1. Pt hx dementia and not appropriate for DM ed at this time. Addendum: 10/10/18 at [address] Amended: Links added.
[2018-10-10 20:00] VITALS: BP 130/45
[2018-10-11] VITALS: BP 147/65
--- NOTE | 2018-10-11 05:32 | NUR ---
patient had difficulty sleeping and refused to take sleeping pill, she was more confuse and grumpy, complaining about her situation and being in the hospital. still NPO and upset about it. c/o pain in her throat that something stuck in her throat, had a sip of water which she insist and ended up coughing and not wanting to drink again. will continue to monitor.
--- NOTE | 2018-10-11 06:37 | NUR ---
Problems reprioritized. Patient report given, questions answered & plan of care reviewed with NERISSA Pacheco. Addendum: 10/11/18 at 0638 by Magali Block RN Amended: Links added.
[2018-10-11 08:00] VITALS: BP 145/65
[2018-10-11] MEDS: K and/or MAG REPLACEMENT MC SCH (08:00)
[2018-10-11] MEDS: docusate sod 100mg capsule PO SCH (08:00)
--- NOTE | 2018-10-11 08:00 | NUR ---
DAUGHTER ARMAND IS IN ROOM WITH PATIENT. 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 DR MORALES NOTIFIED OF THIS AND SAYS SHE DOES REQUEST PT WAIT TO EAT UNTIL AFTER SWALLOW STUDY BUT PATIENTS DAUGHTER IF ADAMANT WILL HAVE TO GO AGAINST DR JACK IF SHE WANTS TO FEED HER. DAUGHTER OKAY WITH THIS AND HAS CHOSE TO FEED PATIENT.
[2018-10-11] MEDS: carVEDilol 12.5mg tablet PO SCH (08:32)
[2018-10-11] MEDS: NATURE THROID 97.5 MG PO SCH (08:32)
[2018-10-11] MEDS: nystatin 15 GM ointment TP SCH ×2 (08:35→13:00)
[2018-10-11 08:57] LABS: BASOPHILS % (AUTO) 0.7 % (0-1); EOSINOPHILS # (AUTO) 0.1 X10'3 (0-0.9); EOSINOPHILS % (AUTO) 3.6 % (0-6); HEMATOCRIT 36.3 % (35.0-45.0); HEMOGLOBIN 11.6 g/dl (12.0-16.0); LYMPHOCYTES # (AUTO) 0.7 X10'3 (1.1-4.8); LYMPHOCYTES % (AUTO) 17.1 % (21-51); MEAN CORPUSCULAR HEMOGLOBIN 28.2 PG (27.0-31.0); MEAN CORPUSCULAR HGB CONC 31.9 g/dL (33.0-36.5); MEAN CORPUSCULAR VOLUME 88.4 FL (78-98); MEAN PLATELET VOLUME 9.9 FL (7.4-10.4); MONOCYTES # (AUTO) 0.4 X10'3 (0-0.9); MONOCYTES % (AUTO) 8.6 % (2-12); NEUTROPHILS # (AUTO) 2.9 X10'3 (1.8-7.7); PLATELET COUNT 79 X10'3 (140-440); RED BLOOD COUNT 4.11 X10'6 (4.20-5.60); RED CELL DISTRIBUTION WIDTH 18.6 % (11.5-14.5); WHITE BLOOD COUNT 4.2 X10'3 (4.5-11.0)
[2018-10-11 09:01] LABS: ALBUMIN 2.8 G/DL (3.4-5.0); ANION GAP 14 (8-16); BLOOD UREA NITROGEN 59 MG/DL (7-18); BUN/CREATININE RATIO 20.1 (6.6-38.0); CALCIUM 8.5 MG/DL (8.5-10.1); CHLORIDE 111 MMOL/L (99-107); CREATININE 2.93 MG/DL (0.40-0.90); GLUCOSE 134 MG/DL (70-104); MAGNESIUM 1.9 MG/DL (1.5-2.4); POTASSIUM 4.9 MMOL/L (3.5-5.1); SODIUM 142 MMOL/L (135-145); eGFR 15 ML/MIN
[2018-10-11 09:18] LABS: ANISOCYTOSIS 2+; PLATELET ESTIMATE DECREASED; POIKILOCYTOSIS FEW
[2018-10-11 09:19] LABS: ELLIPTOCYTES 1+
[2018-10-11 12:00] VITALS: BP 159/64
--- NOTE | 2018-10-11 13:58 | NUR ---
PT DISCHARGED HOME WITH DAUGHTER, IV TAKEN OUT, NO TELE, ALL BELONGINGS TAKEN FROM ROOM. NO NEW MEDS. [facility] FO[facility].
== END 2018-10-11 13:55 | disposition home or self-care (01) | DRG 291 ==
LOC: ER 12:58 → SUR 3N 15:38 → CMPBEDREQ 10-11 01:25
PROVIDERS: ADMIT Internal Medicine; ATTEND Internal Medicine
DX: I13.0 Hypertensive heart and chronic kidney disease with heart failure and stage 1 through stage 4 chronic kidney disease, or unspecified chronic kidney disease (principal); I50.23 Acute on chronic systolic (congestive) heart failure; I69.951 Hemiplegia and hemiparesis following unspecified cerebrovascular disease affecting right dominant side; N18.4 Chronic kidney disease, stage 4 (severe); E03.9 Hypothyroidism, unspecified; E11.22 Type 2 diabetes mellitus with diabetic chronic kidney disease; E78.00 Pure hypercholesterolemia, unspecified; K21.9 Gastro-esophageal reflux disease without esophagitis; B37.2 Candidiasis of skin and nail; Z66 Do not resuscitate; F03.90 Unspecified dementia, unspecified severity, without behavioral disturbance, psychotic disturbance, mood disturbance, and anxiety; Z81.8 Family history of other mental and behavioral disorders; Z90.710 Acquired absence of both cervix and uterus; Z88.0 Allergy status to penicillin; Z88.8 Allergy status to other drugs, medicaments and biological substances; Z79.899 Other long term (current) drug therapy
CPT/HCPCS: 36415; 36600; 70450; 71045; 76775; 80048; 80053; 81001; 82570; 82803; 82948; 83036; 83605; 83735; 83880; 84156; 84300; 84443; 84484; 85018; 85025; 85610; 85730; 87040; 87070; 87207; 93005; 93306; 96374; 97116; 97161; 97530; 99285; G0378; J1940; J2405